=== PATIENT | male | born 1945 | race Caucasian/White ===

== ENCOUNTER 2019-02-10 09:23 | Inpatient (IN) | payer MEDICARE ==
[~2019-02-10] VITALS: Ht 170.2 cm; Wt 107.1 kg
[2019-02-10 10:40] LABS: Basophils # (auto) 0 uL; Basophils % (auto) 0.3 % (0.0-2.0); Eosinophils # (auto) 0.4 uL; Eosinophils % (auto) 2.9 % (0.0-7.0); Hematocrit 28.6 % (41.0-53.0); Hemoglobin 9.6 g/dL (13.5-17.5); Lymphocytes # (auto) 2.1 uL; Mean Corpuscular Hemoglobin 32.3 pg (28.0-32.0); Mean Corpuscular Hgb Conc. 33.4 g/dL (32.0-36.0); Mean Corpuscular Volume 96.5 fL (80.0-100.0); Monocytes # (auto) 1.4 uL; Monocytes % (auto) 10.7 % (0.0-12.0); Neutrophils # (auto) 8.7 uL; Neutrophils % (auto) 69.1 % (37.0-80.0); Nucleated Red Blood Cells % 0.2 %; Platelet Count (auto) 197 10^3/uL (140-450); Red Blood Cells 2.97 10^6/uL (4.5-5.90); Red Cell Distribution Width 14.5 % (11.8-14.3); White Blood Cell 12.6 10^3/uL (4.4-10.8)
[2019-02-10 10:53] LABS: Albumin 2.7 g/dL (3.4-5.0); Calcium 9.1 mg/dL (8.5-10.1); Potassium 4.1 mmol/L (3.5-5.1)
[2019-02-10 10:58] LABS: Bilirubin, Total 0.7 mg/dL (0.2-1.0); Total Protein 6.5 g/dL (6.4-8.2)
[2019-02-10 11:43] LABS: INR 1.05 (0.9-1.15); Partial Thromboplastin Time 27.5 sec (23.64-32.05)
[2019-02-10] MEDS ORDERED: D5W/SOD CHL 0.45% 1,000 ML IV SCH (12:34)
[2019-02-10] MEDS ORDERED: MORPHINE SULF INJ 2 MG/ML SYRINGE 1ML IV PRN ×2 (12:45→15:15)
[2019-02-10] MEDS ORDERED: ONDANSETRON HCL 4 MG/2 ML VIAL IV PRN (12:45)
[2019-02-10] MEDS ORDERED: NITROGLYCERIN 0.4 MG SL TAB SL PRN (12:45)
[2019-02-10] MEDS ORDERED: MORPHINE SULFATE 4 MG/ML SYR/VIAL IV PRN (12:45)
[2019-02-10] MEDS: HYDROcodone-ACET 5/325MG TAB PO PRN (13:20)
[2019-02-10] MEDS ORDERED: METHOCARBAMOL 500 MG TAB PO PRN (15:15)
[2019-02-10] MEDS ORDERED: IOHEXOL 350 MG/ML 100ML IJ ONE (16:29)
[2019-02-10 16:38] LABS: Urine WBC None Seen /hpf (0 - 3)
[2019-02-10 16:51] LABS: Urine Bacteria NONE SEEN /hpf (None Seen); Urine Blood Negative /uL (Negative); Urine Hyaline Cast FEW /lpf (0 - 2); Urine Specific Gravity 1.031 (1.001-1.035); Urine Sperm PRESENT /hpf (None Seen)
--- NOTE | 2019-02-10 17:30 | NUR ---
Telemetry admit from ER ANGUS SCHRADER admitted to Telemetry unit after SBAR received. Patient oriented to Lisa benoit RN, unit, room, bed, and unit policies regarding patient care and visiting hours. Patient now on continuous telemetry monitoring, tele box # [id number] and telemetry reading on arrival to unit is afib at 74 with pvcs. Patient placed on bedside oxygen, weighed by bed scale and encouraged to call if they need something. All questions and concerns addressed, patient verbalized understanding. Note: at bedside
[2019-02-10 17:39] VITALS: BP 129/67
[2019-02-10] MEDS ORDERED: AMIO200T33 PO (18:12)
[2019-02-10] MEDS ORDERED: FERR-20 PO (18:12)
[2019-02-10] MEDS ORDERED: DIGO0.1262 PO (18:12)
[2019-02-10] MEDS ORDERED: HYDR-4683 PO (18:12)
[2019-02-10] MEDS ORDERED: ATOR20TA PO (18:12)
[2019-02-10] MEDS ORDERED: CHOL1000 PO (18:12)
[2019-02-10] MEDS ORDERED: RANI300C7 PO (18:12)
[2019-02-10] MEDS ORDERED: METH750T3 PO (18:12)
[2019-02-10] MEDS ORDERED: LOSA100T33 PO (18:26)
[2019-02-10] MEDS ORDERED: ASPI81CH43 PO (18:26)
[2019-02-10] MEDS ORDERED: APIX2.5T PO (18:26)
--- NOTE | 2019-02-10 18:37 | NUR ---
[facility] SWAB OBTAINED AND SENT
--- NOTE | 2019-02-10 18:43 | NUR ---
WOUND PHOTO OBTAINED PHOTO OF INCISION
[2019-02-10] MEDS: FERROUS SULFATE 325 MG TAB PO SCH (21:15)
[2019-02-10] MEDS: AMIODARONE HCL 200 MG TAB PO SCH (21:15)
[2019-02-10] MEDS: ATORVASTATIN 20 MG TAB PO SCH (21:16)
[2019-02-10] MEDS: TEMAZEPAM 15 MG CAP PO PRN (21:17)
[2019-02-10 22:00] VITALS: BP 122/72
[2019-02-11] VITALS (7 sets, daily range): BP systolic 98–132; BP diastolic 54–78
[2019-02-11] MEDS: HYDROcodone-ACET 5/325MG TAB PO PRN ×3 (01:39→20:27)
[2019-02-11] MEDS: FERROUS SULFATE 325 MG TAB PO SCH ×4 (05:49→21:45)
[2019-02-11 06:08] LABS: Basophils # (auto) 0 uL; Basophils % (auto) 0.3 % (0.0-2.0); Eosinophils # (auto) 0.3 uL; Eosinophils % (auto) 2.3 % (0.0-7.0); Hematocrit 25.4 % (41.0-53.0); Hemoglobin 8.6 g/dL (13.5-17.5); Lymphocytes # (auto) 1.9 uL; Mean Corpuscular Hemoglobin 32.4 pg (28.0-32.0); Mean Corpuscular Hgb Conc. 33.7 g/dL (32.0-36.0); Mean Corpuscular Volume 96.3 fL (80.0-100.0); Monocytes # (auto) 1.1 uL; Neutrophils # (auto) 7.7 uL; Neutrophils % (auto) 70.4 % (37.0-80.0); Nucleated Red Blood Cells % 0.1 %; Platelet Count (auto) 196 10^3/uL (140-450); Red Blood Cells 2.64 10^6/uL (4.5-5.90); Red Cell Distribution Width 14.5 % (11.8-14.3)
[2019-02-11 06:20] LABS: Cholesterol 83 mg/dL (< 200); Triglycerides 84 mg/dL (< 150)
[2019-02-11 06:23] LABS: HDL Cholesterol 29 mg/dL (40-59); LDL Cholesterol 44 mg/dL (< 100)
--- NOTE | 2019-02-11 07:40 | NUR ---
Patient in bed, awake, oriented x4, no acute distress noted. With cane at bedside.
--- NOTE | 2019-02-11 08:20 | NUR ---
Patient had bowel movement as per report from CLINTON Montiel. Addendum: 02/11/19 at 0839 by Paulette Betancourt RN WRONG PATIENT
--- NOTE | 2019-02-11 08:25 | NUR ---
Patient in bed, awake, no complaints of pain.
[2019-02-11 08:37] LABS: Albumin 2.4 g/dL (3.4-5.0); Calcium 8.4 mg/dL (8.5-10.1)
[2019-02-11 08:39] LABS: BUN/Creatinine Ratio 19.6; Bilirubin, Total 0.8 mg/dL (0.2-1.0); Total Protein 5.7 g/dL (6.4-8.2)
[2019-02-11] MEDS ORDERED: DIGOXIN 0.25 MG TAB PO SCH (10:00)
[2019-02-11] MEDS ORDERED: CHOLECALCIFEROL (VITD3) 1,000 UNIT TAB PO SCH (10:00)
[2019-02-11] MEDS: AMIODARONE HCL 200 MG TAB PO SCH ×2 (10:48→21:46)
--- NOTE | 2019-02-11 10:50 | NUR ---
[place] 5/325 PO given for back pain at 11/04 at this time. Family member at bedside.
[2019-02-11] MEDS ORDERED: FUROSEMIDE 20 MG/2 ML VIAL IV ONE (14:15)
--- NOTE | 2019-02-11 14:15 | NUR ---
Dr. Galdamez at bedside. put in orders for Lasix and blood transfusion 1 unit PRBCs now.
[2019-02-11] MEDS ORDERED: OPTISON 3ml Vial for INJ IV ONE (14:23)
--- NOTE | 2019-02-11 16:35 | NUR ---
T = 98.4 F, P = 77, RR = 20, BP = 117/64, O2 Sat = 98% on room air.
--- NOTE | 2019-02-11 16:35 | NUR ---
Blood transfusion of PRBCs as ordered started.
--- NOTE | 2019-02-11 16:50 | NUR ---
Blood transfusion ongoing. No blood transfusion reaction.
--- NOTE | 2019-02-11 16:50 | NUR ---
T = 97.7 F, P = 74, RR = 20, BP = 103/54, O2 Sat = 96% on room air.
--- NOTE | 2019-02-11 18:49 | NUR ---
Blood transfusion ongoing. No blood transfusion reaction.
--- NOTE | 2019-02-11 19:15 | NUR ---
Blood transfusion done. No transfusion reaction noted. Endorsed to weight shifter NOEL Chris.
--- NOTE | 2019-02-11 19:23 | NUR ---
Opening Shift Note Assumed care of patient, awake and alert x 4. No S/S of distress/SOB or pain. Bed is in lowest position and locked. Call light within reach. Board updated. Tele box number matches monitor and leads are in correct placement. Instructed on POC and to call for assist PRN, will continue to monitor for changes Q1hr and PRN.
[2019-02-11] MEDS: TEMAZEPAM 15 MG CAP PO PRN (21:46)
[2019-02-11] MEDS: ATORVASTATIN 20 MG TAB PO SCH (21:46)
[2019-02-12] MEDS: FERROUS SULFATE 325 MG TAB PO SCH (05:33)
[2019-02-12 05:41] VITALS: BP 113/62
[2019-02-12 06:00] VITALS: BP 120/58
[2019-02-12] MEDS ORDERED: FURO20TA PO (07:20)
[2019-02-12 08:04] LABS: Basophils # (auto) 0 uL; Basophils % (auto) 0.3 % (0.0-2.0); Eosinophils # (auto) 0.2 uL; Eosinophils % (auto) 1.8 % (0.0-7.0); Hematocrit 29.7 % (41.0-53.0); Hemoglobin 10.3 g/dL (13.5-17.5); Lymphocytes # (auto) 1.8 uL; Lymphocytes % (auto) 16.7 % (10.0-50.0); Mean Corpuscular Hemoglobin 32.8 pg (28.0-32.0); Mean Corpuscular Hgb Conc. 34.6 g/dL (32.0-36.0); Mean Corpuscular Volume 94.7 fL (80.0-100.0); Monocytes # (auto) 0.9 uL; Monocytes % (auto) 8.7 % (0.0-12.0); Neutrophils # (auto) 7.6 uL; Neutrophils % (auto) 72.5 % (37.0-80.0); Nucleated Red Blood Cells % 0.1 %; Platelet Count (auto) 209 10^3/uL (140-450); Red Blood Cells 3.14 10^6/uL (4.5-5.90); White Blood Cell 10.5 10^3/uL (4.4-10.8)
[2019-02-12 08:15] LABS: Albumin 2.5 g/dL (3.4-5.0); BUN/Creatinine Ratio 18.3; Calcium 8.3 mg/dL (8.5-10.1)
[2019-02-12 08:42] LABS: Bilirubin, Total 0.8 mg/dL (0.2-1.0)
[2019-02-12 09:10] VITALS: BP 120/58
[2019-02-12] MEDS ORDERED: FUROSEMIDE 20 MG/2 ML VIAL IV SCH (10:00)
--- NOTE | 2019-02-12 10:13 | NUR ---
Discharge instructions given as ordered. Encourage to follow up with PMD as instructed. All questions and concerns addressed. Patient verbalized understanding. Medication reconciliation form completed and copy given to patient. IV removed with catheter intact, pressure dressing applied. Telemetry unit returned to [facility]. Patient taken to vehicle via wheelchair with all personal belongings, accompanied by staff and family member. No distress noted at time of departure.
--- NOTE | 2019-02-12 11:53 | NUR ---
assessment Per consult d/s planning. Patient discharged home prior to being assessed. Addendum: 02/12/19 at 1157 by Dayna Jeffries Amended: Links added.
== END 2019-02-12 10:13 | disposition home or self-care (01) | DRG 291 ==
LOC: ER 09:23 → TELE 09:24 → TELE-WESTW 18:15
PROVIDERS: ADMIT Specialist; ATTEND Specialist
PROC: 30233N1 Transfusion of Nonautologous Red Blood Cells into Peripheral Vein, Percutaneous Approach (ICD-10-PCS; principal; 2019-02-11)
DX: I11.0 Hypertensive heart disease with heart failure (principal); I50.21 Acute systolic (congestive) heart failure; G92 Toxic encephalopathy; E66.2 Morbid (severe) obesity with alveolar hypoventilation; D62 Acute posthemorrhagic anemia; E78.5 Hyperlipidemia, unspecified; I48.2 Chronic atrial fibrillation; K21.9 Gastro-esophageal reflux disease without esophagitis; E78.00 Pure hypercholesterolemia, unspecified; K76.0 Fatty (change of) liver, not elsewhere classified; R09.02 Hypoxemia; E77.8 Other disorders of glycoprotein metabolism; I25.10 Atherosclerotic heart disease of native coronary artery without angina pectoris; Z68.37 Body mass index [BMI] 37.0-37.9, adult; Z79.899 Other long term (current) drug therapy
CPT/HCPCS: 36415; 70450; 71275; 76700; 80053; 80061; 81001; 83880; 84443; 84484; 85025; 85379; 85610; 85730; 86850; 86900; 86901; 86920; 87081; 93306; 93970; 94761; 96365; G0378; Q9956